=== PATIENT | male | born 1950 | race Caucasian/White ===

== ENCOUNTER 2017-06-08 09:17 | Emergency (ER) | payer OTHER ==
[~2017-06-08] VITALS: Ht 167.6 cm; Wt 88.5 kg
[2017-06-08 11:30] VITALS: BP 147/89
== END 2017-06-08 11:30 | disposition home or self-care (01) ==
LOC: ED 09:17
DX: R10.13 Epigastric pain (principal); R11.2 Nausea with vomiting, unspecified; R68.83 Chills (without fever); E11.9 Type 2 diabetes mellitus without complications; I10 Essential (primary) hypertension; Z79.84 Long term (current) use of oral hypoglycemic drugs
CPT/HCPCS: J2405; Q0162

== ENCOUNTER 2017-12-05 23:58 | Emergency (ER) | payer OTHER ==
[2017-12-06 01:00] LABS: BASOPHIL % 0.3 % (0-2); CALCIUM 8.5 mg/dL (8.5-10.1); CARBON DIOXIDE 31.1 mmol/L (21-32); CHLORIDE SERUM 105 mmol/L (98-107); CREATININE SERUM 0.9 mg/dL (0.7-1.3); GFR1 > 60 mL/min; GLUCOSE SERUM 188 mg/dL (74-106); PLATELET COUNT 232 x10^3mcL (130-400); POTASSIUM SERUM 3.7 mmol/L (3.5-5.1); RED CELL DISTRIBUTION WIDTH 14.5 % (11.5-14.5); SODIUM SERUM 140 mmol/L (136-145)
[2017-12-06 01:03] LABS: ALBUMIN 3.6 g/dL (3.4-5.0); ALKALINE PHOSPHATASE 118 U/L (46-116); ALT/SGPT 15 U/L (16-63); AST/SGOT 19 U/L (15-37); BILIRUBIN TOTAL 0.22 mg/dL (0.20-1.00); LIPASE 107 IU/L (73-393)
[2017-12-06 05:13] VITALS: BP 148/93
== END 2017-12-06 03:25 | disposition home or self-care (01) ==
LOC: ED 23:58
PROVIDERS: Emergency Medicine
DX: R10.13 Epigastric pain (principal); J45.901 Unspecified asthma with (acute) exacerbation; R11.2 Nausea with vomiting, unspecified; I10 Essential (primary) hypertension; E11.9 Type 2 diabetes mellitus without complications
CPT/HCPCS: 83880; J2270; J2405; J7030; J7613; Q0092; Q9967

== ENCOUNTER 2017-12-25 17:39 | Emergency (ER) | payer OTHER ==
[~2017-12-25] VITALS: Ht 165.1 cm; Wt 86.2 kg
[2017-12-25 18:36] LABS: BASOPHIL % 0.3 % (0-2); PLATELET COUNT 220 x10^3mcL (130-400)
[2017-12-25 18:38] LABS: RED CELL DISTRIBUTION WIDTH 14.8 % (11.5-14.5)
[2017-12-25 18:44] LABS: CALCIUM 8.5 mg/dL (8.5-10.1); CARBON DIOXIDE 25.3 mmol/L (21-32); CHLORIDE SERUM 107 mmol/L (98-107); CREATININE SERUM 0.8 mg/dL (0.7-1.3); GFR1 > 60 mL/min; GLUCOSE SERUM 156 mg/dL (74-106); POTASSIUM SERUM 3.7 mmol/L (3.5-5.1); SODIUM SERUM 145 mmol/L (136-145)
[2017-12-25 18:51] LABS: ALBUMIN 3.8 g/dL (3.4-5.0); ALKALINE PHOSPHATASE 119 U/L (46-116); ALT/SGPT 15 U/L (16-63); AST/SGOT 18 U/L (15-37); BILIRUBIN TOTAL 0.3 mg/dL (0.20-1.00); LIPASE 75 IU/L (73-393); TOTAL PROTEIN, SERUM 7.3 g/dL (6.4-8.2)
[2017-12-25 23:10] VITALS: BP 139/86
== END 2017-12-25 23:10 | disposition home or self-care (01) ==
LOC: ED 17:39
PROVIDERS: Emergency Medicine
DX: R10.13 Epigastric pain (principal); R11.0 Nausea; I10 Essential (primary) hypertension; E11.9 Type 2 diabetes mellitus without complications
CPT/HCPCS: J2405; J3010; J7030; Q0092

== ENCOUNTER 2019-08-07 19:00 | Emergency (ER) | payer OTHER ==
[~2019-08-07] VITALS: Ht 160 cm; Wt 88.1 kg
[2019-08-07 20:34] LABS: BASOPHIL % 0.7 % (0-2); PLATELET COUNT 244 x10^3mcL (130-400); RED CELL DISTRIBUTION WIDTH 14.5 % (11.5-14.5)
[2019-08-07 20:54] LABS: CARBON DIOXIDE 28.6 mmol/L (21-32); CREATININE SERUM 1.3 mg/dL (0.7-1.3); POTASSIUM SERUM 4.4 mmol/L (3.5-5.1)
[2019-08-07 20:55] LABS: ALBUMIN 3.7 g/dL (3.4-5.0); BILIRUBIN TOTAL 0.35 mg/dL (0.20-1.00); CALCIUM 8.9 mg/dL (8.5-10.1); TOTAL PROTEIN, SERUM 7.6 g/dL (6.4-8.2)
[2019-08-07 23:41] VITALS: BP 127/90
== END 2019-08-07 23:41 | disposition home or self-care (01) ==
LOC: ED 19:00
PROVIDERS: Emergency Medicine
DX: B34.9 Viral infection, unspecified (principal); R07.89 Other chest pain; E11.9 Type 2 diabetes mellitus without complications; H57.13 Ocular pain, bilateral; M54.2 Cervicalgia; I10 Essential (primary) hypertension
CPT/HCPCS: 36415; 87804; Q0092

== ENCOUNTER 2019-09-28 10:15 | Emergency (ER) | payer OTHER ==
[~2019-09-28] VITALS: Ht 165.1 cm; Wt 88.5 kg
[2019-09-28 10:26] VITALS: Ht 165.1 cm; Wt 88.5 kg
[2019-09-28 12:03] LABS: CALCIUM 8.3 mg/dL (8.5-10.1); CARBON DIOXIDE 31.4 mmol/L (21-32); CHLORIDE SERUM 106 mmol/L (98-107); CREATININE SERUM 0.8 mg/dL (0.7-1.3); GFR1 > 60 mL/min; GLUCOSE SERUM 106 mg/dL (74-106); POTASSIUM SERUM 4.2 mmol/L (3.5-5.1); SODIUM SERUM 140 mmol/L (136-145)
[2019-09-28 12:08] LABS: ALBUMIN 3.4 g/dL (3.4-5.0); ALKALINE PHOSPHATASE 109 U/L (46-116); ALT/SGPT 18 U/L (16-63); AST/SGOT 19 U/L (15-37); BASOPHIL % 0.5 % (0-2); BILIRUBIN TOTAL 0.4 mg/dL (0.20-1.00); CHOLESTEROL 183 mg/dL (<200); CHOLESTEROL/HDL RATIO 3.8; HDL CHOLESTEROL 48 mg/dL (40-60); LIPASE 92 IU/L (73-393); PLATELET COUNT 210 x10^3mcL (130-400); RED CELL DISTRIBUTION WIDTH 14.9 % (11.5-14.5); TRIGLYCERIDES 89 mg/dL (<150)
[2019-09-28 14:29] VITALS: BP 162/94
== END 2019-09-28 14:29 | disposition home or self-care (01) ==
LOC: ED 10:15
PROVIDERS: Specialist
DX: H11.31 Conjunctival hemorrhage, right eye (principal); K21.9 Gastro-esophageal reflux disease without esophagitis; I10 Essential (primary) hypertension
CPT/HCPCS: 36415; 83880